=== PATIENT | female | born 1990 | race Caucasian/White ===

== ENCOUNTER → 2016-11-17 | Outpatient (CLI) | payer BC ==
[~2016-11-17] MED LIST: /LOR25TA PO; AUGM500T34 PO; DEPO150I IM; PERCOCET PO; TUMS500C PO; ZOLO50TA PO
== END ==
LOC: M WUC 11:51
PROVIDERS: ATTEND Physician Assistant
DX: Z33.1 Pregnant state, incidental (principal)

== ENCOUNTER → 2016-11-28 | Outpatient (CLI) | payer BC ==
[2016-11-28 16:36] LABS: BASO # 0.1 K/mm3 (0.0-0.2); BASO % 1.2 % (0.0-1.0); EOS # 0.3 K/mm3 (0.0-0.50); EOS % 3.2 % (0.0-3.0); LARGE UNSTAINED CELL # 0.1 K/mm3 (0.0-0.4); LYMPH # 2.5 K/mm3 (1.5-6.5); LYMPH % 25.6 % (24.0-44.0); MEAN CORPUSCULAR HEMOGLOBIN 28.9 pg (27.0-33.0); MEAN CORPUSCULAR HGB CONC 32.1 g/dl (32.0-36.5); MEAN CORPUSCULAR VOLUME 90.1 fl (80.0-96.0); MONO # 0.5 K/mm3 (0.0-0.8); MONO % 5.5 % (0.0-5.0); NEUTROPHILS # 5.9 K/mm3 (1.8-7.7); NEUTROPHILS % 63.5 % (36.0-66.0); PLATELET COUNT, AUTOMATED 379 k/mm3 (150-450); RED CELL DISTRIBUTION WIDTH 13.5 % (11.5-14.5); WHITE BLOOD COUNT 9.3 K/mm3 (4.0-10.0)
[2016-11-28 17:35] LABS: CALCIUM OXALATE CRYSTALS MODERATE
[2016-11-29 09:22] LABS: HIV SCRN NEGATIVE (NEGATIVE); HIV SCRN1 NEGATIVE (NEGATIVE)
[2016-11-29 09:29] LABS: CONTROL LINE INT CTR LINE PRESENT
[2016-11-29 10:00] LABS: HBsAg Prenatal NEGATIVE (NEGATIVE)
== END ==
LOC: M LAB 15:47
PROVIDERS: ATTEND Advanced Practice Midwife
DX: Z34.81 Encounter for supervision of other normal pregnancy, first trimester (principal); Z36 Encounter for antenatal screening of mother

== ENCOUNTER → 2016-12-06 | Outpatient (CLI) | payer BC ==
[~2016-12-06] MED LIST changes: +FLINCHW9 PO
[2016-12-06 18:44] LABS: ALBUMIN 3.9 GM/DL (3.2-5.2); ANION GAP 10 MEQ/L (8-16); BLOOD UREA NITROGEN 9 MG/DL (7-18); CALCIUM LEVEL 9.1 MG/DL (8.5-10.1); CARBON DIOXIDE LEVEL 23 MEQ/L (21-32); CHLORIDE LEVEL 106 MEQ/L (98-107); CREATININE FOR GFR 0.82 MG/DL (0.55-1.02); GLOMERULAR FILTRATION RATE > 60.0 (>60); GLUCOSE, FASTING 119 MG/DL (70-105); PHOSPHORUS LEVEL 3.3 MG/DL (2.5-4.9); POTASSIUM SERUM 4.1 MEQ/L (3.5-5.1); SODIUM LEVEL 139 MEQ/L (136-145)
== END ==
LOC: M SMT 15:18
PROVIDERS: ATTEND Advanced Practice Midwife
DX: Z34.81 Encounter for supervision of other normal pregnancy, first trimester (principal); Z36 Encounter for antenatal screening of mother

== ENCOUNTER 2016-12-11 07:02 | Observation (INO) | payer BC ==
[~2016-12-11] VITALS: Ht 160 cm; Wt 61.8 kg
[2016-12-11] VITALS (7 sets, daily range): BP systolic 102–115; BP diastolic 56–73
[~2016-12-11 07:02] MED LIST changes: -FLINCHW9 PO
[2016-12-11] MEDS: PRENATAL VITAMIN TAB PO SCH (09:00)
[2016-12-11 09:30] LABS: BASO % 0.3 % (0.0-1.0); EOS # 0.1 K/mm3 (0.0-0.50); EOS % 1.7 % (0.0-3.0); LARGE UNSTAINED CELL # 0.1 K/mm3 (0.0-0.4); LARGE UNSTAINED CELL % 1.6 % (0.0-4.0); LYMPH # 1.4 K/mm3 (1.5-6.5); LYMPH % 20.1 % (24.0-44.0); MEAN CORPUSCULAR HGB CONC 33.8 g/dl (32.0-36.5); MEAN CORPUSCULAR VOLUME 88.8 fl (80.0-96.0); MONO # 0.3 K/mm3 (0.0-0.8); MONO % 4.7 % (0.0-5.0); NEUTROPHILS % 71.6 % (36.0-66.0); PLATELET COUNT, AUTOMATED 299 k/mm3 (150-450); RED CELL DISTRIBUTION WIDTH 12.3 % (11.5-14.5)
[2016-12-11 10:17] LABS: ANION GAP 7 MEQ/L (8-16); BLOOD UREA NITROGEN 6 MG/DL (7-18); CALCIUM LEVEL 8.8 MG/DL (8.5-10.1); CARBON DIOXIDE LEVEL 27 MEQ/L (21-32); CHLORIDE LEVEL 107 MEQ/L (98-107); CREATININE FOR GFR 0.64 MG/DL (0.55-1.02); GLOMERULAR FILTRATION RATE > 60.0 (>60); GLUCOSE, FASTING 69 MG/DL (70-105); POTASSIUM SERUM 3.7 MEQ/L (3.5-5.1); SODIUM LEVEL 141 MEQ/L (136-145)
[2016-12-11] MEDS ORDERED: FLINCHW9 PO (10:32)
[2016-12-11] MEDS ORDERED: ACETAMINOPHEN TAB 650MG DOSE (2X325MG) PO PRN (10:45)
--- NOTE | 2016-12-11 13:01 | EDDOCDS ---
Nurse's Notes [facility] Name: Yuliana Garcia Age: 26 yrs Sex: Female : 1990 Arrival Date: 12/11/2016 Time: 07:02 Bed I3 / M3 Private MD: Monica Shaffer E Diagnosis: Transient cerebral ischemic attack, unspecified-possible Presentation: 12/11 07:06 Presenting complaint: Patient states: states was walking and felt dizzy had numb ml6 feeling in right side of body, state Hx of same with negative MRI. Lasted 30 mins, states 8 weeks . Adult Sepsis Screening: The patient does not have new or worsening altered mentation. Patient's respiratory rate is less than 22. Systolic blood pressure is greater than 100. Patient has a qSOFA score of 0- Negative Sepsis Screen. Suicide/Homicide risk assessment- the patient denies having any suicidal and/or homicidal ideations and does not present with any other emotional, behavioral or mental health complaints. 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 Transition of care: patient was not received from another setting of care. 07:06 Acuity: NEEMA Level 3 ml6 07:06 Method Of Arrival: Walkin/Carried/Asstd ml6 Triage Assessment: 07:09 General: Appears in no apparent distress, Behavior is appropriate for age, cooperative. ml6 Pain: Denies pain. HIV screening NA for this visit Offered previously. Neurological: Level of Consciousness is awake, alert, Oriented to person, place, Surface Room Shop Optician are equal bilaterally Moves all extremities. Full function in bilateral hand's) arm(s) leg(s) foot/feet Gait is steady, Speech is normal, Facial symmetry appears normal, Pupils are irregular. Cardiovascular: No deficits noted. Respiratory: No deficits noted. 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 Macrobid 100 mg Oral cap 1 cap every 12 hours x 7 days, pt filled on 11/30/16 but has not started - PMHx: none; - PSHx: Cholecystectomy; ; - Social history: Smoking status: Patient states was never smoker of tobacco. No barriers to communication noted, Speaks appropriately for age. - Family history: Not pertinent. - : The pt / caregiver states he / she is not on anticoagulants. Home medication list is obtained from the patient. - Exposure Risk Screening:: None identified. Screenin:48 Screening information is obtained from the patient. Fall risk: No risks identified. jjr Assistance ADL's: requires no assistance with activities of daily living. Abuse/DV Screen: The patient / caregiver reports he/she is: not in a situation that causes fear, pain or injury. Nutritional screening: No deficits noted. Advance Directives: There is no active DNR order. home support is adequate. Assessment: 07:46 General: Appears in no apparent distress, well nourished, well groomed, Behavior is jjr appropriate for age. General: Reports fatigue for 0-12 hours. Neurological: Level of Consciousness is awake, alert, Surface Room Shop Optician are equal bilaterally Moves all extremities. Speech is normal, Facial symmetry appears normal, Facial symmetry: tongue is midline, Pupils are PERRLA, Reports "tightness" to forehead. Respiratory: No deficits noted. GI: Reports "morning sickness" nausea has not vomited. Derm: No deficits noted. 07:48 : Denies cramping vaginal bleeding. jjr 08:33 General: Appears in no apparent distress, denies any numbness slurred speech since jjr arrival. 09:45 General: Appears in no apparent distress, denies numbness slurred speech, tolerating jjr food and fluids denies needs at this time. Neurological: No deficits noted. 10:33 General: Appears in no apparent distress, Behavior is appropriate for age. Pain: jjr Location: forehead. Neurological: No deficits noted. Respiratory: No deficits noted. Derm: No deficits noted. 11:24 General: Appears in no apparent distress, Behavior is appropriate for age. Pain: Denies jjr pain. Neurological: No deficits noted. Respiratory: No deficits noted. Derm: No deficits noted. 11:55 General: Appears skin warm and dry color satisfactory. alert and oriented x 3 JYOTHI JAUREGUI jmk readily with equal strength. without resp distress. reports sensation has returned to baseline.. 11:56 Cardiovascular: Capillary refill < 3 seconds Clubbing of nail beds is absent JVD is jmk absent Rhythm is sinus rhythm No ectopy. 12:56 General: Appears without symptoms. strength equal to all extremities. denies pain. sl jmk intact. admitted.. Vital Signs: 07:07 BP 140 / 71; Pulse 84; Resp 16; Temp 97.1(O); Pulse Ox 98% on R/A; Weight 62.6 kg (R); ml6 Height 5 ft. 3 in. (160.02 cm) (R); Pain 0/10; 08:44 BP 114 / 73 LA Supine (auto/reg); Pulse 66; jjr 08:44 BP 113 / 70 LA Sitting (auto/reg); Pulse 77; jjr 08:44 BP 118 / 67 LA Standing (auto/reg); Pulse 87; jjr 11:51 BP 126 / 61; Pulse 102; Resp 18; Temp 97.3(O); Pulse Ox 98% on R/A; Pain 0/10; jjr 12:56 BP 117 / 56; Pulse 85; Resp 16; Temp 99.3(TE); Pulse Ox 98% on R/A; jmk 07:07 Body Mass Index 24.45 (62.60 kg, 160.02 cm) ml6 Vitals: 07:07 Log In Time: December 11, 2016 at 07:02. 6 ED Course: 07:04 Patient visited by Russel Carter Reg. pm4 07:04 Monica Shaffer is Private Physician. pm4 07:04 Patient moved to Waiting pm4 07:07 Triage Initiated ml6 07:13 April Moss, RN is Primary Nurse. ml6 07:13 Patient moved to I3 / M3 ml6 07:20 Ayush Leonard PA-C is PHCP. ar2 07:20 Radha Son MD is Attending Physician. ar2 07:20 Patient visited by Ayush Leonard PA-C. ar2 07:49 Patient visited by April Moss RN. jjr 07:49 The patient / caregiver is instructed regarding the plan of care and ED course. jjr 08:33 Patient visited by April Moss, [place]. jjr 08:36 [place] [place] Payment Agreement was scanned into [employer] and attached to record. jp5 09:14 Parag Kilgore is Hospitalizing Provider. ar2 09:17 MED Profile Sent. jjr 09:17 CBC with Diff Sent. jjr 09:45 Patient visited by April Moss RN. jjr 10:33 Patient visited by April Moss RN. jjr 11:24 Patient visited by April Moss RN. jjr 11:53 Inserted saline lock: 20 gauge in left antecubital area. No procedures done that jjr require assistance. Point of Care Testing: Blood Glucose: 08:44 Blood Glucose: 92 mg/dL; jjr 10:32 Blood Glucose: 84 mg/dL; jjr Ranges: Order Results: Lab Order: CBC with Diff; SPEC'M 12/11/16 09:16 Test: WHITE BLOOD COUNT; Value: 7.0; Range: 4.0-10.0; Units: K/mm3; Status: F Test: RED BLOOD COUNT; Value: 4.27; Range: 4.00-5.40; Units: M/mm3; Status: F Test: HEMOGLOBIN; Value: 12.8; Range: 12.0-16.0; Units: g/dl; Status: F Test: HEMATOCRIT; Value: 37.9; Range: 36.0-47.0; Units: %; Status: F Test: MEAN CORPUSCULAR VOLUME; Value: 88.8; Range: 80.0-96.0; Units: fl; Status: F Test: MEAN CORPUSCULAR HEMOGLOBIN; Value: 30.0; Range: 27.0-33.0; Units: pg; Status: F Test: MEAN CORPUSCULAR HGB CONC; Value: 33.8; Range: 32.0-36.5; Units: g/dl; Status: F Test: RED CELL DISTRIBUTION WIDTH; Value: 12.3; Range: 11.5-14.5; Units: %; Status: F Test: PLATELET COUNT, AUTOMATED; Value: 299; Range: 150-450; Units: k/mm3; Status: F Test: NEUTROPHILS %; Value: 71.6; Range: 36.0-66.0; Abnormal: Above high normal; Units: %; Status: F Test: LYMPH %; Value: 20.1; Range: 24.0-44.0; Abnormal: Below low normal; Units: %; Status: F Test: MONO %; Value: 4.7; Range: 0.0-5.0; Units: %; Status: F Test: EOS %; Value: 1.7; Range: 0.0-3.0; Units: %; Status: F Test: BASO %; Value: 0.3; Range: 0.0-1.0; Units: %; Status: F Test: LARGE UNSTAINED CELL %; Value: 1.6; Range: 0.0-4.0; Units: %; Status: F Test: NEUTROPHILS #; Value: 5.0; Range: 1.8-7.7; Units: K/mm3; Status: F Test: LYMPH #; Value: 1.4; Range: 1.5-6.5; Abnormal: Below low normal; Units: K/mm3; Status: F Test: MONO #; Value: 0.3; Range: 0.0-0.8; Units: K/mm3; Status: F Test: EOS #; Value: 0.1; Range: 0.0-0.50; Units: K/mm3; Status: F Test: BASO #; Value: 0.0; Range: 0.0-0.2; Units: K/mm3; Status: F Test: LARGE UNSTAINED CELL #; Value: 0.1; Range: 0.0-0.4; Units: K/mm3; Status: F Lab Order: [facility] Profile; [facility]'M 12/11/16 09:16 Test: GLUCOSE, FASTING; Value: 69; Range: 70-105; Abnormal: Below low normal; Units: MG/DL; Status: F Test: BLOOD UREA NITROGEN; Value: 6; Range: 7-18; Abnormal: Below low normal; Units: MG/DL; Status: F Test: CREATININE FOR GFR; Value: 0.64; Range: 0.55-1.02; Units: MG/DL; Status: F Test: GLOMERULAR FILTRATION RATE; Value: > 60.0; Range: >60; Status: F Test: SODIUM LEVEL; Value: 141; Range: 136-145; Units: MEQ/L; Status: F Test: POTASSIUM SERUM; Value: 3.7; Range: 3.5-5.1; Units: MEQ/L; Status: F Test: CHLORIDE LEVEL; Value: 107; Range: 98-107; Units: MEQ/L; Status: F Test: CARBON DIOXIDE LEVEL; Value: 27; Range: 21-32; Units: MEQ/L; Status: F Test: ANION GAP; Value: 7; Range: 8-16; Abnormal: Below low normal; Units: MEQ/L; Status: F Test: CALCIUM LEVEL; Value: 8.8; Range: 8.5-10.1; Units: MG/DL; Status: F Test Note: ; Units are mL/min/1.73 m2 Chronic Kidney Disease Staging per NKF: Stage I & II GFR >=60 Normal to Mildly Decreased Stage III GFR 30-59 Moderately Decreased Stage IV GFR 15-29 Severely Decreased Stage V GFR <15 Very Little GFR Left ESRD GFR <15 on SKIN TOGGLER Lab Order: Fingerstick Blood Sugar; SPEC'M 12/11/16 08:43 Test: BEDSIDE GLUCOSE; Value: 92; Range: 70-105; Units: MG/DL; Status: F Lab Order: UA; SPEC'M 12/11/16 11:48 Test: APPEARANCE, URINE; Value: HAZY; Range: CLEAR; Status: F Test: COLOR, URINE; Value: YELLOW; Range: YELLOW; Status: F Test: PH,URINE; Value: 9.0; Range: 5.0-9.0; Units: UNITS; Status: F Test: SPECIFIC GRAVITY URINE AUTO; Value: 1.014; Range: 1.002-1.035; Status: F Test: PROTEIN, URINE AUTO; Value: NEGATIVE; Range: NEGATIVE; Units: mg/dL; Status: F Test: GLUCOSE, URINE (UA) AUTO; Value: NEGATIVE; Range: NEGATIVE; Units: mg/dL; Status: F Test: KETONE, URINE AUTO; Value: NEGATIVE; Range: NEGATIVE; Units: mg/dL; Status: F Test: UROBILINOGEN, URINE AUTO; Value: 0.2; Range: 0.0-2.0; Units: mg/dL; Status: F Test: BILIRUBIN, URINE AUTO; Value: NEGATIVE; Range: NEGATIVE; Status: F Test: NITRITE, URINE AUTO; Value: NEGATIVE; Range: NEGATIVE; Status: F Test: LEUKOCYTE ESTERASE, URINE AUTO; Value: 3+; Range: NEGATIVE; Abnormal: Above high normal; Status: F Test: BLOOD, URINE BLOOD; Value: NEGATIVE; Range: NEGATIVE; Status: F Test: WBC, URINE AUTO; Value: 5; Range: 0-3; Abnormal: Above high normal; Units: /HPF; Status: F Test: RBC, URINE AUTO; Value: 16; Range: 0-3; Abnormal: Above high normal; Units: /HPF; Status: F Test: BACTERIA, URINE AUTO; Value: 1+; Range: NEGATIVE; Abnormal: Above high normal; Status: F Test: SQUAMOUS EPITHELIAL CELL UR AU; Value: 11; Range: 0-6; Units: /HPF; Status: F Test: MUCUS, URINE; Value: SMALL; Range: NEGATIVE; Status: F Test: HYALINE CAST, URINE AUTO; Value: 0; Range: 0-1; Units: /LPF; Status: F Test: AMORPHOUS SEDIMENT; Value: SMALL; Range: NEGATIVE; Abnormal: Above high normal; Status: F Lab Order: Fingerstick Blood Sugar; SPEC'M 12/11/16 10:31 Test: BEDSIDE GLUCOSE; Value: 84; Range: 70-105; Units: MG/DL; Status: F Outcome: 09:15 Decision to Hospitalize by Provider. ar2 12:56 Discharge Assessment: Patient awake, alert and oriented x 3. No cognitive and/or k functional deficits noted. Patient verbalized understanding of disposition instructions. patient administered narcotics - no. The following High Risk Discharge criteria are identified: None. Condition: good. No special radiology studies were completed. Admission hand-off: Report Faxed Fax receipt verified by bert pemberton. Property :Personal belongings accompany Pt. 13:00 Patient left the ED. [facility] Signatures: Param RutledgeRN RN April Hernandez RN RN Ayush Escobar, PA-C PA-C ar2 Sean Jay, RN RN ml6 Samuel Galvan jp5 Russel Carter, Reg Reg pm4 Corrections: (The following items were deleted from the chart) 07:09 07:06 Presenting complaint: Patient states: states was walking and felt dizzy had numb ml6 feeling in right side of body, state Hx of same with negative MRI ml6 11:53 07:09 Home Meds: none; ml6 jjr MTDD
--- NOTE | 2016-12-11 13:01 | EDDOCDS ---
Physician Documentation [facility] Name: Yuliana Garcia Age: 26 yrs Sex: Female : 1990 Arrival Date: 12/11/2016 Time: 07:02 Bed I3 / M3 Private MD: Monica Shaffer E Disposition: 12/11/16 09:15 Hospitalization ordered by Parag Kilgore for Inpatient Admission. Preliminary diagnosis is Transient cerebral ischemic attack, unspecified - possible. - Bed requested for PCU. - Status is Inpatient Admission. rushk - Condition is Stable. - Problem is new. - Symptoms have improved. Historical: - Allergies: no known allergies; - Home Meds: 1. Macrobid 100 mg Oral cap 1 cap every 12 hours x 7 days, pt filled on 11/30/16 but has not started - PMHx: none; - PSHx: Cholecystectomy; ; - Social history: Smoking status: Patient states was never smoker of tobacco. No barriers to communication noted, Speaks appropriately for age. - Family history: Not pertinent. - : The pt / caregiver states he / she is not on anticoagulants. Home medication list is obtained from the patient. - Exposure Risk Screening:: None identified. 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 3 in. (160.02 cm) (R); Pain 0/10; 08:44 BP 114 / 73 LA Supine (auto/reg); Pulse 66; jjr 08:44 BP 113 / 70 LA Sitting (auto/reg); Pulse 77; jjr 08:44 BP 118 / 67 LA Standing (auto/reg); Pulse 87; jjr 11:51 BP 126 / 61; Pulse 102; Resp 18; Temp 97.3(O); Pulse Ox 98% on R/A; Pain 0/10; jjr 12:56 BP 117 / 56; Pulse 85; Resp 16; Temp 99.3(TE); Pulse Ox 98% on R/A; jmk 07:07 Body Mass Index 24.45 (62.60 kg, 160.02 cm) ml6 MDM: 08:34 IV Saline Lock ordered. ar2 08:34 Accucheck ordered. ar2 08:34 Orthostatic VS ordered. ar2 08:35 CBC with Diff Ordered. EDMS 08:35 MED Profile Ordered. EDMS 08:36 [facility] [place] Payment Agreement was scanned into MED[employer] and attached to record. jp5 08:36 Financial registration complete. jp5 08:51 Fingerstick Blood Sugar Ordered. EDMS 09:13 BED REQUEST+ADM ordered. EDMS 10:21 CBC with Diff Reviewed. ar2 10:21 MED Profile Reviewed. ar2 10:21 Fingerstick Blood Sugar Reviewed. ar2 10:23 UA Ordered. EDMS 10:50 Admission / Observation Status ordered. EDMS 10:50 REGULAR DIET ordered. EDMS Point of Care Testing: Blood Glucose: 08:44 Blood Glucose: 92 mg/dL; jjr 10:32 Blood Glucose: 84 mg/dL; jjr Ranges: Signatures: Dispatcher [employer] EDCA Param Rutledge,RN RN April Hernandez, RN RN jjr Ayush Leonard, PA-Flores PADavid ar2 Sean Jay, RN RN ml6 Samuel Galvan jp5 Yolis Fragoso, RN RN melida The chart was reviewed and I authenticate all verbal orders and agree with the evaluation and treatment provided.Corrections: (The following items were deleted from the chart) 11:53 07:09 Home Meds: none; ml6 jjr Attachments: 08:36 [facility] Payment Agreement jp5 MTDD
[2016-12-11] MEDS ORDERED: SLF 3 ML SYR IV PRN (13:30)
--- NOTE | 2016-12-11 15:29 | HPEPDOC ---
Medical History and Physical Date of Admission Dec 11, 2016 at 10:40 History and Physical HISTORY AND PHYSICAL Date of admission: 12/11/2016 PCP: Dr. Shaffer Chief complaint: Dizziness and right-sided numbness HPI: 26-year-old female at approximately 8 weeks who presented with sudden onset of dizziness and right-sided paresthesias. 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 She states that her tongue felt swollen, and she noticed that her right hand could not weigher bulker. She states that this self resolved after approximately 30 minutes. Upon further questioning , she does endorse a bilateral frontal headache that coincided with the symptoms but also resolved with them. She states that she does not have a history of migraines or frequent headaches. She does report one prior episode that was similar to this approximately 5 years ago. She reports that time, she did get an MRI, which saw "spots on her brain." She states that she was supposed to receive follow-up for this, but as she never had any further issue with that, she never had any repeat imaging or pursued further follow-up. Past medical history: Gallstone pancreatitis, cholecystitis Past surgical history: Cholecystitis, Family history: Diabetes mellitus, hypertension, CVA in her grandfather who was approximately 70 years old at the time, no familial history of strokes in the young or blood clots Social history: Patient has never smoked, and does not drink alcohol or use drugs Allergies: No known drug allergies Review of systems: General: Negative for fever and chills Eyes:. Negative for vision changes and ocular discharge ENT: Negative for sore throat and nose bleed Cardiovascular: Negative for chest pain and palpitations Respiratory: Negative for cough and shortness of breath GI: Positive for nausea. Negative for vomiting, diarrhea, constipation Musculoskeletal: Positive for chronic back pain Skin: Negative for rash Neuro: Positive for headache, dizziness, numbness, tingling Psych: Negative for depression and suicidal ideation Endocrine: Negative for polyuria : Negative for dysuria Heme: Negative for Bruising and bleeding Home meds: See below Physical exam: Vital signs: Blood pressure 102/56, HR 78, temperature 97.6, O2 sat 97% on room air, RR 18 Gen.: awake, alert, no acute distress Eyes: Extraocular movements intact, normal sclera ENT: Moist mucous membranes Cardiovascular: RRR, no murmurs rubs or gallops Lungs: clear to auscultation bilaterally, no rales, rhonchi, or wheeze Abdomen: Soft, NT/ND, normal BS Musculoskeletal: normal range of motion Extremities: No peripheral edema Neuro: alert and oriented 3, normal speech, no focal deficits, no arm drift or facial droop, intact finger to nose Psych: Normal mood with congruent affect Labs and radiology: See below CBC and BMP are unremarkable Assessment and plan: 26-year-old female at approximately 8 weeks who presented with sudden onset of dizziness and right-sided paresthesias. She has been admitted for further observation. 1. Sudden onset, self resolving vertigo and right-sided paresthesias: Given the patient's current , she is certainly at risk for hypercoagulability and a stroke. Ideally, we would assess with an MRI and MRV, however, after discussion with Dr. Perdue of radiology, we will hold off at this time, as he states that MRIs are not routinely recommended in the first trimester. Additionally, this could represent a complicated migraine, as the patient does report associated headache. Dr. Edwards will be seeing the patient in consultation, and we appreciate his input and guidance on this case. We will observe the patient on telemetry and follow every 4 hours neuro checks. We also will check orthostatics. 2. Current : The patient is approximately 8 weeks . She has already established care at [facility], and reportedly has had an ultrasound which showed a single IUP. I have spoken to Simran Lopez, the millinery designer who is on-call for [facility], to alert her to the patient's admission. At this time, I do not believe a consultation is necessary, as the has not currently reached viability, and as Mrs. Lopez thinks that it is unlikely these symptoms are related to the . Continue daily vitamin. DVT prophylaxis: SCDs Dispo: in place in observation status CODE STATUS: Full code Vital Signs see above Laboratory Data Labs 24H Laboratory Tests 2 12/11/16 08:43: Bedside Glucose (Misc Panel) 92 12/11/16 09:16: Anion Gap 7L, White Blood Count 7.0, Red Blood Count 4.27, Hemoglobin 12.8, Hematocrit 37.9, Mean Corpuscular Volume 88.8, Mean Corpuscular Hemoglobin 30.0 , Mean Corpuscular Hemoglobin Concent 33.8, Red Cell Distribution Width 12.3, Platelet Count 299, Neutrophils (%) (Auto) 71.6H, Lymphocytes (%) (Auto) 20.1L, Monocytes (%) (Auto) 4.7, Eosinophils (%) (Auto) 1.7, Basophils (%) (Auto) 0.3, Neutrophils # (Auto) 5.0, Lymphocytes # (Auto) 1.4L, Monocytes # (Auto) 0.3, Eosinophils # (Auto) 0.1, Basophils # (Auto) 0.0, Blood Urea Nitrogen 6L, Creatinine 0.64, Sodium Level 141, Potassium Level 3.7, Chloride Level 107, Carbon Dioxide Level 27, Calcium Level 8.8, Glomerular Filtration Rate > 60.0, Large Unclassified Cells # 0.1, Large Unclassified Cells % 1.6 12/11/16 10:31: Bedside Glucose (Misc Panel) 84 12/11/16 11:48: Urine Amorphous Sediment SMALLH, Urine Appearance HAZY, Urine Color YELLOW, Urine pH 9.0, Urine Specific [place] 1.014, Urine Protein NEGATIVE, Urine Glucose (UA) NEGATIVE, Urine Ketones NEGATIVE, Urine Urobilinogen 0.2, Urine Bilirubin NEGATIVE, Urine Leukocyte Esterase 3+H, Urine Bacteria (Auto) 1+H, Urine Blood NEGATIVE, Urine Calcium Carbonate Cryst(Auto) , Urine Calcium Oxalate Cryst (Auto) , Urine Calcium Phosphate [place] (Auto) , Urine Cellular Casts , Urine Cystine Crystals , Urine Granular Casts (Auto) , Urine Hyaline Casts (Auto) 0, Urine Leucine Crystals , Urine Mucus (Auto) SMALL, Urine Nitrite NEGATIVE, Urine Oval Fat Bodies (Auto) , Urine RBC (Auto) 16H, Urine Renal Epithelial Cells , Urine Sperm (Auto) , Urine Squamous Epithelial Cells 11 , Urine Transitional Epithelial Cells , Urine Trichomonas (Auto) , Urine Triple Phosphate Cryst (Auto) , Urine Tyrosine Crystals , Urine Uric Acid Crystals ( Auto) , Urine WBC (Auto) 5H, Urine Waxy Casts (Auto) , Urine Yeast-Like Cells ( Auto) CBC/BMP Laboratory Tests 12/11/16 09:16 Calcium Level 8.8, Red Blood Count 4.27, Mean Corpuscular Volume 88.8, Mean Corpuscular Hemoglobin 30.0, Mean Corpuscular Hemoglobin Concent 33.8, Red Cell Distribution Width 12.3, Neutrophils (%) (Auto) 71.6 H, Lymphocytes (%) (Auto) 20.1 L, Monocytes (%) (Auto) 4.7, Eosinophils (%) (Auto) 1.7, Basophils (%) ( Auto) 0.3, Neutrophils # (Auto) 5.0, Lymphocytes # (Auto) 1.4 L, Monocytes # ( Auto) 0.3, Eosinophils # (Auto) 0.1, Basophils # (Auto) 0.0 FSBS Laboratory Tests Test 12/11/16 08:43 12/11/16 10:31 Range/Units Bedside Glucose (Misc Panel) 92 84 70-105 MG/DL Home Medications Scheduled (Timoteo Sharma) 1 Chw Chw 2 CHW PO DAILY Allergies Coded Allergies: No Known Drug Allergy (Unverified Allergy, Unknown, 02/10/13) ИРИНА ALVES Dec 11, 2016 15:28
[2016-12-11] MEDS: SLF 3 ML SYR IV SCH ×2 (18:16→21:36)
[2016-12-12] MEDS: SLF 3 ML SYR IV SCH (03:28)
[2016-12-12 04:00] VITALS: BP 96/59
[2016-12-12 05:59] LABS: BASO % 0.3 % (0.0-1.0); EOS # 0.2 K/mm3 (0.0-0.50); EOS % 2.4 % (0.0-3.0); LARGE UNSTAINED CELL # 0.2 K/mm3 (0.0-0.4); LYMPH # 1.8 K/mm3 (1.5-6.5); MEAN CORPUSCULAR HEMOGLOBIN 30.1 pg (27.0-33.0); MEAN CORPUSCULAR HGB CONC 33.6 g/dl (32.0-36.5); MEAN CORPUSCULAR VOLUME 89.6 fl (80.0-96.0); MONO # 0.5 K/mm3 (0.0-0.8); NEUTROPHILS # 5.5 K/mm3 (1.8-7.7); NEUTROPHILS % 67.3 % (36.0-66.0); PLATELET COUNT, AUTOMATED 288 k/mm3 (150-450); RED CELL DISTRIBUTION WIDTH 12.3 % (11.5-14.5); WHITE BLOOD COUNT 8.2 K/mm3 (4.0-10.0)
[2016-12-12 06:05] LABS: ANION GAP 9 MEQ/L (8-16); BLOOD UREA NITROGEN 5 MG/DL (7-18); CALCIUM LEVEL 8.6 MG/DL (8.5-10.1); CARBON DIOXIDE LEVEL 24 MEQ/L (21-32); CHLORIDE LEVEL 107 MEQ/L (98-107); CREATININE FOR GFR 0.67 MG/DL (0.55-1.02); GLOMERULAR FILTRATION RATE > 60.0 (>60); GLUCOSE, FASTING 84 MG/DL (70-105); MAGNESIUM LEVEL 1.9 MG/DL (1.8-2.4); SODIUM LEVEL 140 MEQ/L (136-145)
[2016-12-12 08:00] VITALS: BP 99/57
[2016-12-12 08:05] VITALS: BP 104/66
[2016-12-12 08:10] VITALS: BP 99/65
[2016-12-12] MEDS: PRENATAL VITAMIN TAB PO SCH (09:00)
--- NOTE | 2016-12-12 13:46 | DSES ---
DATE OF ADMISSION: 12/11/2016 DATE OF DISCHARGE: 12/12/2016 DISCHARGE DIAGNOSIS: 1. Vertigo. 2. Paresthesias. SECONDARY DIAGNOSES: 1. Possible complex migraine. 2. Eight week gestational . HOSPITAL COURSE: The patient is a 26-year-old female who reported 30 minutes of right-sided paresthesias, weakness associated with vertigo of sudden onset, self-limited and spontaneously resolved prior to her arrival to the emergency room. She was seen in consultation by Dr. Edwards of neurology. It was recommended the patient should have an magnetic resonance imaging/magnetic resonance venography (MRI/MRV) if there was concern for a potential cerebrovascular accident (CVA), given her hypercoagulable state of ; however, after discussions with the neuroradiologist and the risk of radiation exposure during her first trimester, and the fact that the patient's symptoms subsided spontaneously, the patient decided that she would forgo an MRI at this time and consider having it done in the outpatient setting and follow up with neurology. We had a lengthy conversation with the patient, Dr. Coulter, Dr. Edwards, as well as myself, and the patient has elected for this course of action. She has been advised that should she have any recurrence of her symptoms, she should return to the emergency room to reconsider getting the MRI/MRV more urgently. SUBJECTIVE: Today, the patient reports feels completely better. She has no complaints whatsoever. OBJECTIVE: VITAL SIGNS: Temperature 97.2, pulse 70, respiratory rate 18, blood pressure 99/57, oxygen saturation 97% on room air. GENERAL: She is a pleasant, young female laying flat in bed in no distress. HEENT: Cranial nerves II-XII grossly intact. She has moist mucous membranes. No elevation of central venous pressure (CVP). CARDIOVASCULAR EXAMINATION: S1, S2. Regular. RESPIRATORY EXAMINATION: Clear. ABDOMINAL EXAMINATION: Abdomen was benign. EXTREMITIES: No clubbing, cyanosis or edema. LABORATORY STUDIES: WBC 8.2, hemoglobin 12.4, platelet count 288. Chemistry panel: Sodium 140, potassium 4.0, chloride 107, bicarbonate 24, BUN 5, creatinine 0.6. No new imaging. ASSESSMENT AND PLAN: This is a 26-year-old female with paresthesias and vertigo. PROBLEMS: 1. Paresthesias and vertigo. Self-limited and resolved. Possibly related to complex migraine; however, there is also the underlying possibility that the patient may have severe, significant findings on an MRI/MRV. At this time, the patient has elected to forgo further imaging testing and will reconsider after her first trimester is over. She did discuss this plan with Dr. Edwards. She will follow up with him within two weeks. Symptoms have completely resolved at this time. 2. Eight-week gestation . The patient follows at [facility]. They were notified of her arrival. Did not feel that this was related to her and the case was discussed with her on-call. She is continuing her daily vitamins. 3. Deep venous thrombosis (DVT) prophylaxis. Sequentials and thromboembolitic deterrents (TEDs). DISPOSITION: The patient is being discharged home to the care of her family. She is to follow up with her brush head maker (OB) within seven days and then neurology as soon as possible. Her activity and diet are as prior to admission. She is to return to the emergency room (ER) if her symptoms worsen. MEDICATIONS AT THE TIME OF DISCHARGE: - [employer]'s gummies two chewable daily. Greater than 30 minutes spent organizing disposition.
--- NOTE | 2016-12-12 15:22 | CR ---
DATE OF NEUROLOGY CONSULTATION: 12/11/2016 REASON FOR CONSULTATION: Dizziness with hemisensory disturbance. The patient is a 26-year-old, 8-week female presenting with a chief complaint of experiencing sudden onset of dizziness. The patient states that soon after the dizziness she started to notice a headache. During the headache the patient started to notice tingling and paresthesias involving her right hand , which over several minutes traveled up her right arm involving her face, then trunk then leg. The symptoms of dizziness lasted about 10 minutes and the remaining 20 minutes involved the paresthesias which soon resolved. During this time she described the headache, which was mild in intensity and resolved after the symptoms had resolved themselves. The patient states that a similar episode occurred approximately a year ago. Due to the patient being in her first trimester it was recommended to avoid MRI of the brain and MR venogram although would be ideal. The patient likely clinically has complex migraine due to the cortical depression symptoms of right hemisensory changes which were transient. The patient is currently at her baseline state and has been admitted to [facility] for observation. The patient will likely have an MRI of the brain and MR venogram without contrast if her symptoms return in the second or third trimester. PAST MEDICAL HISTORY: Gallstone pancreatitis, cholecystitis. PAST SURGICAL HISTORY: Cholecystitis, . FAMILY HISTORY: Noncontributory. SOCIAL HISTORY: The patient denies use of any alcohol, illicit drugs or tobacco. ALLERGIES: None. CURRENT MEDICATIONS: vitamins REVIEW OF SYSTEMS: 14-point review of systems was obtained and is negative except as per HPI. PHYSICAL EXAMINATION: Current height 5 feet 3 inches, current weight 62.7 kg, temperature 97.6 degrees Fahrenheit, pulse rate 78, respiratory rate is 18, blood pressure was 102/56, oxygenation 97% room air. The patient is alert, or to person, place and time. Speech, language comprehension, repetition are intact. Pupils are 3 mm round, reactive to light. Extraocular movements are intact in all directions without nystagmus. Sensation V1, V2, V3 is intact to light touch in all four extremities. Romberg testing is negative. The patient has normal reflexes, 2s in upper and lower extremities. Babinski signs are absent. Coordination: Normal [id number], [id number] without any signs of ataxia, dysmetria. Romberg testing is negative. ASSESSMENT: Complex migraine with cortical depression and hemisensory disturbance with dizziness, resolved. PLAN: Continue observation for 24 hours. The patient to followup in the [facility] Neurology office as an outpatient. Can consider MRI and MR venogram in the second or third trimester. DARCYD
--- NOTE | 2016-12-13 14:01 | EDDOCDS ---
Physician Documentation [facility] Name: Yuliana Garcia Age: 26 yrs Sex: Female : 1990 Arrival Date: 12/11/2016 Time: 07:02 Bed I3 / M3 Private MD: Monica Shaffer E Disposition: 12/11/16 09:15 Hospitalization ordered by Parag Kilgore for Inpatient Admission. Preliminary diagnosis is Transient cerebral ischemic attack, unspecified - possible. - Bed requested for PCU. - Status is Inpatient Admission. rushk - Condition is Stable. - Problem is new. - Symptoms have improved. Historical: - Allergies: no known allergies; - Home Meds: 1. Macrobid 100 mg Oral cap 1 cap every 12 hours x 7 days, pt filled on 11/30/16 but has not started - PMHx: none; - PSHx: Cholecystectomy; ; - Social history: Smoking status: Patient states was never smoker of tobacco. No barriers to communication noted, Speaks appropriately for age. - Family history: Not pertinent. - : The pt / caregiver states he / she is not on anticoagulants. Home medication list is obtained from the patient. - Exposure Risk Screening:: None identified. 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 3 in. (160.02 cm) (R); Pain 0/10; 08:44 BP 114 / 73 LA Supine (auto/reg); Pulse 66; jjr 08:44 BP 113 / 70 LA Sitting (auto/reg); Pulse 77; jjr 08:44 BP 118 / 67 LA Standing (auto/reg); Pulse 87; jjr 11:51 BP 126 / 61; Pulse 102; Resp 18; Temp 97.3(O); Pulse Ox 98% on R/A; Pain 0/10; jjr 12:56 BP 117 / 56; Pulse 85; Resp 16; Temp 99.3(TE); Pulse Ox 98% on R/A; jmk 07:07 Body Mass Index 24.45 (62.60 kg, 160.02 cm) ml6 MDM: 08:34 IV Saline Lock ordered. ar2 08:34 Accucheck ordered. ar2 08:34 Orthostatic VS ordered. ar2 08:35 CBC with Diff Ordered. EDMS 08:35 MED Profile Ordered. EDMS 08:36 [facility] Payment Agreement was scanned into [employer] and attached to record. jp5 08:36 Financial registration complete. jp5 08:51 Fingerstick Blood Sugar Ordered. EDMS 09:13 BED REQUEST+ADM ordered. EDMS 10:21 CBC with Diff Reviewed. ar2 10:21 MED Profile Reviewed. ar2 10:21 Fingerstick Blood Sugar Reviewed. ar2 10:23 UA Ordered. EDMS 10:50 Admission / Observation Status ordered. EDMS 10:50 REGULAR DIET ordered. EDMS 14:05 T-Sheet-- Draft Copy was scanned into [employer] and attached to record. klr Point of Care Testing: Blood Glucose: 08:44 Blood Glucose: 92 mg/dL; jjr 10:32 Blood Glucose: 84 mg/dL; jjr Ranges: Signatures: Dispatcher [employer] EDMS Param Rutledge,STANFORD RN April Hernandez RN RN jancar Ayush Leonard PA-C PA-C arSean Adams, RN RN mlSamuel Yun jp5 Hafsa Barton Lisa, RN STANFORD montez The chart was reviewed and I authenticate all verbal orders and agree with the evaluation and treatment provided.Corrections: (The following items were deleted from the chart) 11:53 07:09 Home Meds: none; ml6 jjr Attachments: 08:36 [facility] Payment Agreement [facility] 14:05 T-Sheet-- Draft Copy klr Chart Complete MTDD
--- NOTE | 2016-12-13 14:01 | EDDOCDS ---
Physician Documentation [facility] Name: Yuliana Garcia Age: 26 yrs Sex: Female : 1990 Arrival Date: 12/11/2016 Time: 07:02 Bed I3 / M3 Private MD: Monica Shaffer E Disposition: 12/11/16 09:15 Hospitalization ordered by Parag Kilgore for Inpatient Admission. Preliminary diagnosis is Transient cerebral ischemic attack, unspecified - possible. - Bed requested for PCU. - Status is Inpatient Admission. rushk - Condition is Stable. - Problem is new. - Symptoms have improved. Historical: - Allergies: no known allergies; - Home Meds: 1. Macrobid 100 mg Oral cap 1 cap every 12 hours x 7 days, pt filled on 11/30/16 but has not started - PMHx: none; - PSHx: Cholecystectomy; ; - Social history: Smoking status: Patient states was never smoker of tobacco. No barriers to communication noted, Speaks appropriately for age. - Family history: Not pertinent. - : The pt / caregiver states he / she is not on anticoagulants. Home medication list is obtained from the patient. - Exposure Risk Screening:: None identified. 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 3 in. (160.02 cm) (R); Pain 0/10; 08:44 BP 114 / 73 LA Supine (auto/reg); Pulse 66; jjr 08:44 BP 113 / 70 LA Sitting (auto/reg); Pulse 77; jjr 08:44 BP 118 / 67 LA Standing (auto/reg); Pulse 87; jjr 11:51 BP 126 / 61; Pulse 102; Resp 18; Temp 97.3(O); Pulse Ox 98% on R/A; Pain 0/10; jjr 12:56 BP 117 / 56; Pulse 85; Resp 16; Temp 99.3(TE); Pulse Ox 98% on R/A; jmk 07:07 Body Mass Index 24.45 (62.60 kg, 160.02 cm) ml6 MDM: 08:34 IV Saline Lock ordered. ar2 08:34 Accucheck ordered. ar2 08:34 Orthostatic VS ordered. ar2 08:35 CBC with Diff Ordered. EDMS 08:35 MED Profile Ordered. EDMS 08:36 [facility] Payment Agreement was scanned into [employer] and attached to record. jp5 08:36 Financial registration complete. jp5 08:51 Fingerstick Blood Sugar Ordered. EDMS 09:13 BED REQUEST+ADM ordered. EDMS 10:21 CBC with Diff Reviewed. ar2 10:21 MED Profile Reviewed. ar2 10:21 Fingerstick Blood Sugar Reviewed. ar2 10:23 UA Ordered. EDMS 10:50 Admission / Observation Status ordered. EDMS 10:50 REGULAR DIET ordered. EDMS 14:05 T-Sheet-- Draft Copy was scanned into [employer] and attached to record. klr Point of Care Testing: Blood Glucose: 08:44 Blood Glucose: 92 mg/dL; jjr 10:32 Blood Glucose: 84 mg/dL; jjr Ranges: Signatures: Dispatcher [employer] EDMS Param Rutledge,STANFORD RN April Hernandez RN RN jancar Ayush Leonard PA-C PA-C arSean Adams, RN RN mlSamuel Yun jp5 Hafsa Barton Lisa, RN STANFORD montez The chart was reviewed and I authenticate all verbal orders and agree with the evaluation and treatment provided.Corrections: (The following items were deleted from the chart) 11:53 07:09 Home Meds: none; ml6 jjr Attachments: 08:36 [facility] Payment Agreement [facility] 14:05 T-Sheet-- Draft Copy klr Chart Complete MTDD
--- NOTE | 2016-12-13 14:01 | EDDOCDS ---
Nurse's Notes [facility] Name: Yuliana Garcia Age: 26 yrs Sex: Female : 1990 Arrival Date: 12/11/2016 Time: 07:02 Bed I3 / M3 Private MD: Monica Shaffer E Diagnosis: Transient cerebral ischemic attack, unspecified-possible Presentation: 12/11 07:06 Presenting complaint: Patient states: states was walking and felt dizzy had numb ml6 feeling in right side of body, state Hx of same with negative MRI. Lasted 30 mins, states 8 weeks . Adult Sepsis Screening: The patient does not have new or worsening altered mentation. Patient's respiratory rate is less than 22. Systolic blood pressure is greater than 100. Patient has a qSOFA score of 0- Negative Sepsis Screen. Suicide/Homicide risk assessment- the patient denies having any suicidal and/or homicidal ideations and does not present with any other emotional, behavioral or mental health complaints. Status: Patient is not a application services manager or dependent. Transition of care: patient was not received from another setting of care. 07:06 Acuity: NEEMA Level 3 ml6 07:06 Method Of Arrival: Walkin/Carried/Asstd ml6 Triage Assessment: 07:09 General: Appears in no apparent distress, Behavior is appropriate for age, cooperative. ml6 Pain: Denies pain. HIV screening NA for this visit Offered previously. Neurological: Level of Consciousness is awake, alert, Oriented to person, place, Muck Hauler are equal bilaterally Moves all extremities. Full function in bilateral hand's) arm(s) leg(s) foot/feet Gait is steady, Speech is normal, Facial symmetry appears normal, Pupils are irregular. Cardiovascular: No deficits noted. Respiratory: No deficits noted. 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 Macrobid 100 mg Oral cap 1 cap every 12 hours x 7 days, pt filled on 11/30/16 but has not started - PMHx: none; - PSHx: Cholecystectomy; ; - Social history: Smoking status: Patient states was never smoker of tobacco. No barriers to communication noted, Speaks appropriately for age. - Family history: Not pertinent. - : The pt / caregiver states he / she is not on anticoagulants. Home medication list is obtained from the patient. - Exposure Risk Screening:: None identified. Screenin:48 Screening information is obtained from the patient. Fall risk: No risks identified. jjr Assistance ADL's: requires no assistance with activities of daily living. Abuse/DV Screen: The patient / caregiver reports he/she is: not in a situation that causes fear, pain or injury. Nutritional screening: No deficits noted. Advance Directives: There is no active DNR order. home support is adequate. Assessment: 07:46 General: Appears in no apparent distress, well nourished, well groomed, Behavior is jjr appropriate for age. General: Reports fatigue for 0-12 hours. Neurological: Level of Consciousness is awake, alert, Muck Hauler are equal bilaterally Moves all extremities. Speech is normal, Facial symmetry appears normal, Facial symmetry: tongue is midline, Pupils are PERRLA, Reports "tightness" to forehead. Respiratory: No deficits noted. GI: Reports "morning sickness" nausea has not vomited. Derm: No deficits noted. 07:48 : Denies cramping vaginal bleeding. jjr 08:33 General: Appears in no apparent distress, denies any numbness slurred speech since jjr arrival. 09:45 General: Appears in no apparent distress, denies numbness slurred speech, tolerating jjr food and fluids denies needs at this time. Neurological: No deficits noted. 10:33 General: Appears in no apparent distress, Behavior is appropriate for age. Pain: jjr Location: forehead. Neurological: No deficits noted. Respiratory: No deficits noted. Derm: No deficits noted. 11:24 General: Appears in no apparent distress, Behavior is appropriate for age. Pain: Denies jjr pain. Neurological: No deficits noted. Respiratory: No deficits noted. Derm: No deficits noted. 11:55 General: Appears skin warm and dry color satisfactory. alert and oriented x 3 JYOTHI JAUREGUI jmk readily with equal strength. without resp distress. reports sensation has returned to baseline.. 11:56 Cardiovascular: Capillary refill < 3 seconds Clubbing of nail beds is absent JVD is jmk absent Rhythm is sinus rhythm No ectopy. 12:56 General: Appears without symptoms. strength equal to all extremities. denies pain. sl jmk intact. admitted.. Vital Signs: 07:07 BP 140 / 71; Pulse 84; Resp 16; Temp 97.1(O); Pulse Ox 98% on R/A; Weight 62.6 kg (R); ml6 Height 5 ft. 3 in. (160.02 cm) (R); Pain 0/10; 08:44 BP 114 / 73 LA Supine (auto/reg); Pulse 66; jjr 08:44 BP 113 / 70 LA Sitting (auto/reg); Pulse 77; jjr 08:44 BP 118 / 67 LA Standing (auto/reg); Pulse 87; jjr 11:51 BP 126 / 61; Pulse 102; Resp 18; Temp 97.3(O); Pulse Ox 98% on R/A; Pain 0/10; jjr 12:56 BP 117 / 56; Pulse 85; Resp 16; Temp 99.3(TE); Pulse Ox 98% on R/A; jmk 07:07 Body Mass Index 24.45 (62.60 kg, 160.02 cm) ml6 Vitals: 07:07 Log In Time: December 11, 2016 at 07:02. 6 ED Course: 07:04 Patient visited by Russel Carter Reg. pm4 07:04 Monica Shaffer is Private Physician. pm4 07:04 Patient moved to Waiting pm4 07:07 Triage Initiated ml6 07:13 April Moss, RN is Primary Nurse. ml6 07:13 Patient moved to I3 / M3 ml6 07:20 Ayush Leonard PA-C is PHCP. ar2 07:20 Radha Son MD is Attending Physician. ar2 07:20 Patient visited by Ayush Leonard PA-C. ar2 07:49 Patient visited by April Moss RN. jjr 07:49 The patient / caregiver is instructed regarding the plan of care and ED course. jjr 08:33 Patient visited by April Moss, [place]. jjr 08:36 [facility] Payment Agreement was scanned into [employer] and attached to record. jp5 09:14 Parag Kilgore is Hospitalizing Provider. ar2 09:17 MED Profile Sent. jjr 09:17 CBC with Diff Sent. jjr 09:45 Patient visited by April Moss RN. jjr 10:33 Patient visited by April Moss RN. jjr 11:24 Patient visited by April Moss RN. jjr 11:53 Inserted saline lock: 20 gauge in left antecubital area. No procedures done that jjr require assistance. 14:05 T-Sheet-- Draft Copy was scanned into [email or web address] and attached to record. [facility] Point of Care Testing: Blood Glucose: 08:44 Blood Glucose: 92 mg/dL; jjr 10:32 Blood Glucose: 84 mg/dL; jjr Ranges: Order Results: Lab Order: CBC with Diff; SPEC'M 12/11/16 09:16 Test: WHITE BLOOD COUNT; Value: 7.0; Range: 4.0-10.0; Units: K/mm3; Status: F Test: RED BLOOD COUNT; Value: 4.27; Range: 4.00-5.40; Units: M/mm3; Status: F Test: HEMOGLOBIN; Value: 12.8; Range: 12.0-16.0; Units: g/dl; Status: F Test: HEMATOCRIT; Value: 37.9; Range: 36.0-47.0; Units: %; Status: F Test: MEAN CORPUSCULAR VOLUME; Value: 88.8; Range: 80.0-96.0; Units: fl; Status: F Test: MEAN CORPUSCULAR HEMOGLOBIN; Value: 30.0; Range: 27.0-33.0; Units: pg; Status: F Test: MEAN CORPUSCULAR HGB CONC; Value: 33.8; Range: 32.0-36.5; Units: g/dl; Status: F Test: RED CELL DISTRIBUTION WIDTH; Value: 12.3; Range: 11.5-14.5; Units: %; Status: F Test: PLATELET COUNT, AUTOMATED; Value: 299; Range: 150-450; Units: k/mm3; Status: F Test: NEUTROPHILS %; Value: 71.6; Range: 36.0-66.0; Abnormal: Above high normal; Units: %; Status: F Test: LYMPH %; Value: 20.1; Range: 24.0-44.0; Abnormal: Below low normal; Units: %; Status: F Test: MONO %; Value: 4.7; Range: 0.0-5.0; Units: %; Status: F Test: EOS %; Value: 1.7; Range: 0.0-3.0; Units: %; Status: F Test: BASO %; Value: 0.3; Range: 0.0-1.0; Units: %; Status: F Test: LARGE UNSTAINED CELL %; Value: 1.6; Range: 0.0-4.0; Units: %; Status: F Test: NEUTROPHILS #; Value: 5.0; Range: 1.8-7.7; Units: K/mm3; Status: F Test: LYMPH #; Value: 1.4; Range: 1.5-6.5; Abnormal: Below low normal; Units: K/mm3; Status: F Test: MONO #; Value: 0.3; Range: 0.0-0.8; Units: K/mm3; Status: F Test: EOS #; Value: 0.1; Range: 0.0-0.50; Units: K/mm3; Status: F Test: BASO #; Value: 0.0; Range: 0.0-0.2; Units: K/mm3; Status: F Test: LARGE UNSTAINED CELL #; Value: 0.1; Range: 0.0-0.4; Units: K/mm3; Status: F Lab Order: [facility]; [facility]' 12/11/16 09:16 Test: GLUCOSE, FASTING; Value: 69; Range: 70-105; Abnormal: Below low normal; Units: MG/DL; Status: F Test: BLOOD UREA NITROGEN; Value: 6; Range: 7-18; Abnormal: Below low normal; Units: MG/DL; Status: F Test: CREATININE FOR GFR; Value: 0.64; Range: 0.55-1.02; Units: MG/DL; Status: F Test: GLOMERULAR FILTRATION RATE; Value: > 60.0; Range: >60; Status: F Test: SODIUM LEVEL; Value: 141; Range: 136-145; Units: MEQ/L; Status: F Test: POTASSIUM SERUM; Value: 3.7; Range: 3.5-5.1; Units: MEQ/L; Status: F Test: CHLORIDE LEVEL; Value: 107; Range: 98-107; Units: MEQ/L; Status: F Test: CARBON DIOXIDE LEVEL; Value: 27; Range: 21-32; Units: MEQ/L; Status: F Test: ANION GAP; Value: 7; Range: 8-16; Abnormal: Below low normal; Units: MEQ/L; Status: F Test: CALCIUM LEVEL; Value: 8.8; Range: 8.5-10.1; Units: MG/DL; Status: F Test Note: ; Units are mL/min/1.73 m2 Chronic Kidney Disease Staging per NKF: Stage I & II GFR >=60 Normal to Mildly Decreased Stage III GFR 30-59 Moderately Decreased Stage IV GFR 15-29 Severely Decreased Stage V GFR <15 Very Little GFR Left ESRD GFR <15 on TECHNICAL SERVICES ANALYST Lab Order: Fingerstick Blood Sugar; SPEC'M 12/11/16 08:43 Test: BEDSIDE GLUCOSE; Value: 92; Range: 70-105; Units: MG/DL; Status: F Lab Order: UA; SPEC' 12/11/16 11:48 Test: APPEARANCE, URINE; Value: HAZY; Range: CLEAR; Status: F Test: COLOR, URINE; Value: YELLOW; Range: YELLOW; Status: F Test: PH,URINE; Value: 9.0; Range: 5.0-9.0; Units: UNITS; Status: F Test: SPECIFIC GRAVITY URINE AUTO; Value: 1.014; Range: 1.002-1.035; Status: F Test: PROTEIN, URINE AUTO; Value: NEGATIVE; Range: NEGATIVE; Units: mg/dL; Status: F Test: GLUCOSE, URINE (UA) AUTO; Value: NEGATIVE; Range: NEGATIVE; Units: mg/dL; Status: F Test: KETONE, URINE AUTO; Value: NEGATIVE; Range: NEGATIVE; Units: mg/dL; Status: F Test: UROBILINOGEN, URINE AUTO; Value: 0.2; Range: 0.0-2.0; Units: mg/dL; Status: F Test: BILIRUBIN, URINE AUTO; Value: NEGATIVE; Range: NEGATIVE; Status: F Test: NITRITE, URINE AUTO; Value: NEGATIVE; Range: NEGATIVE; Status: F Test: LEUKOCYTE ESTERASE, URINE AUTO; Value: 3+; Range: NEGATIVE; Abnormal: Above high normal; Status: F Test: BLOOD, URINE BLOOD; Value: NEGATIVE; Range: NEGATIVE; Status: F Test: WBC, URINE AUTO; Value: 5; Range: 0-3; Abnormal: Above high normal; Units: /HPF; Status: F Test: RBC, URINE AUTO; Value: 16; Range: 0-3; Abnormal: Above high normal; Units: /HPF; Status: F Test: BACTERIA, URINE AUTO; Value: 1+; Range: NEGATIVE; Abnormal: Above high normal; Status: F Test: SQUAMOUS EPITHELIAL CELL UR AU; Value: 11; Range: 0-6; Units: /HPF; Status: F Test: MUCUS, URINE; Value: SMALL; Range: NEGATIVE; Status: F Test: HYALINE CAST, URINE AUTO; Value: 0; Range: 0-1; Units: /LPF; Status: F Test: AMORPHOUS SEDIMENT; Value: SMALL; Range: NEGATIVE; Abnormal: Above high normal; Status: F Lab Order: Fingerstick Blood Sugar; SPEC'M 12/11/16 10:31 Test: BEDSIDE GLUCOSE; Value: 84; Range: 70-105; Units: MG/DL; Status: F Outcome: 09:15 Decision to Hospitalize by Provider. ar2 12:56 Discharge Assessment: Patient awake, alert and oriented x 3. No cognitive and/or k functional deficits noted. Patient verbalized understanding of disposition instructions. patient administered narcotics - no. The following High Risk Discharge criteria are identified: None. Condition: good. No special radiology studies were completed. Admission hand-off: Report Faxed Fax receipt verified by bert pemberton. Property :Personal belongings accompany Pt. 13:00 Patient left the ED. [facility] Signatures: Param Rutledge,RN RN April Hernandez, RN RN Ayush Escobar, PA-C PA-C ar2 Sean Jay, RN RN Samuel Crabtree Kathie klr Montondo, Paul, Reg Reg pm4 Corrections: (The following items were deleted from the chart) 07:09 07:06 Presenting complaint: Patient states: states was walking and felt dizzy had numb ml6 feeling in right side of body, state Hx of same with negative MRI ml6 11:53 07:09 Home Meds: none; ml6 jancar Chart Complete MTDD
== END 2016-12-12 11:16 | disposition home or self-care (01) ==
LOC: M ED 07:02 → M ED INP 10:40 → M PCU 13:05
PROVIDERS: ADMIT Hospitalist; ATTEND Hospitalist
DX: R42 Dizziness and giddiness (principal); R20.2 Paresthesia of skin; Z33.1 Pregnant state, incidental

== ENCOUNTER → 2017-02-12 | Outpatient (REF) | payer BC ==
[~2017-02-12] MED LIST changes: +FLINCHW9 PO
== END ==
LOC: M LAB REF 16:54
PROVIDERS: ATTEND Advanced Practice Midwife
DX: Z34.82 Encounter for supervision of other normal pregnancy, second trimester (principal); Z36 Encounter for antenatal screening of mother

== ENCOUNTER → 2017-02-26 | Outpatient (CLI) | payer BC ==
--- NOTE | 2017-02-26 08:17 | REP ---
Clinical: Anatomical evaluation. Comparison: None . Findings: Examination demonstrates a single live intrauterine in variable presentation. motion is identified by technologist. Placenta is noted posteriorly and grade zero without evidence for placenta previa or abruption. Amniotic fluid volume is normal. Cervix measures 3.9 cm in length and appears closed. Nuchal cord cannot be excluded. Gestational age by LMP 19 weeks 1 day with JESUS 07/22/2017. Gestational age by current measurements 19 weeks 2 days with JESUS 07/21/2017. FHR equals 157 beats per minute. BPD 4.4 cm 19 weeks 3 days HC 16.3 cm 16 weeks 3 days AC 14.3 cm 19 weeks 5 days FL 3.0 cm 19 weeks 2 days HL 2.9 cm 19 weeks 3 days HC/AC ratio 1.14 Estimated weight 292 grams ( 59th percentile). Anatomical assessment demonstrates normal structures including cranium, choroid plexus, cavum, cerebellum/posterior fossa, facial features, lungs, four-chamber heart/ventricular outflow tracts, diaphragm, stomach, cord insertion/three-vessel cord, kidneys/bladder, spine, and extremities. Impression: Single live intrauterine in variable presentation. Nuchal cord cannot be excluded. Anatomical assessment is complete and normal. Signed by Duglas Rosario MD 02/26/2017 08:08 A
== END ==
LOC: M RAD 07:03
PROVIDERS: ATTEND Advanced Practice Midwife
DX: Z34.82 Encounter for supervision of other normal pregnancy, second trimester (principal); Z36 Encounter for antenatal screening of mother; Z3A.19 19 weeks gestation of pregnancy

== ENCOUNTER → 2017-05-10 | Outpatient (CLI) | payer BC, SELFPAY ==
[~2017-05-10] MED LIST changes: +HYDR1SOL PO; +[UNRECOGNIZED DRUG - CODE] PO
[2017-05-10 13:36] LABS: BASO % 0.4 % (0.0-1.0); EOS # 0.3 K/mm3 (0.0-0.50); EOS % 2.2 % (0.0-3.0); LARGE UNSTAINED CELL # 0.1 K/mm3 (0.0-0.4); LARGE UNSTAINED CELL % 0.9 % (0.0-4.0); LYMPH # 1.8 K/mm3 (1.5-6.5); LYMPH % 14.5 % (24.0-44.0); MEAN CORPUSCULAR HEMOGLOBIN 28.7 pg (27.0-33.0); MEAN CORPUSCULAR HGB CONC 33.3 g/dl (32.0-36.5); MEAN CORPUSCULAR VOLUME 86.3 fl (80.0-96.0); MONO # 0.5 K/mm3 (0.0-0.8); MONO % 3.8 % (0.0-5.0); NEUTROPHILS # 9.8 K/mm3 (1.8-7.7); NEUTROPHILS % 78.2 % (36.0-66.0); PLATELET COUNT, AUTOMATED 291 k/mm3 (150-450); RED CELL DISTRIBUTION WIDTH 13.2 % (11.5-14.5); WHITE BLOOD COUNT 12.5 K/mm3 (4.0-10.0)
== END ==
LOC: M LAB 11:28
PROVIDERS: ATTEND Advanced Practice Midwife
DX: Z34.83 Encounter for supervision of other normal pregnancy, third trimester (principal); Z36 Encounter for antenatal screening of mother

== ENCOUNTER → 2017-06-19 | Outpatient (CLI) | payer BC ==
[2017-06-19 15:22] LABS: MEAN CORPUSCULAR HEMOGLOBIN 27.2 pg (27.0-33.0); MEAN CORPUSCULAR HGB CONC 33.2 g/dl (32.0-36.5); RED CELL DISTRIBUTION WIDTH 14.7 % (11.5-14.5); WHITE BLOOD COUNT 10.2 K/mm3 (4.0-10.0)
== END ==
LOC: M LAB 14:47
PROVIDERS: ATTEND Obstetrics & Gynecology
DX: Z34.83 Encounter for supervision of other normal pregnancy, third trimester (principal)

== ENCOUNTER → 2017-06-21 | Outpatient (REF) | payer BC | LOC: M LAB REF 17:25 | PROVIDERS: ATTEND Specialist | DX: Z34.83 Encounter for supervision of other normal pregnancy, third trimester (principal); Z36 Encounter for antenatal screening of mother ==

== ENCOUNTER 2017-07-11 08:36 | Outpatient (CLI) | payer BC ==
[~2017-07-11] VITALS: Ht 160 cm; Wt 73.0 kg
[~2017-07-11 08:36] MED LIST changes: -HYDR1SOL PO; -[UNRECOGNIZED DRUG - CODE] PO
[2017-07-11] MEDS ORDERED: IRON SUCROSE 25 MG in NS 50 ML IV ONE (09:00)
[2017-07-11] MEDS ORDERED: IRON SUCROSE 475 MG in NS 250 ML IV ONE (10:00)
== END 2017-07-11 14:40 | disposition home or self-care (01) ==
LOC: M INFU 08:36
PROVIDERS: ATTEND Advanced Practice Midwife
DX: D64.9 Anemia, unspecified (principal)
CPT/HCPCS: 96365; 96366; J1756

== ENCOUNTER 2017-07-16 04:53 | Inpatient (IN) | payer BC ==
[~2017-07-16] VITALS: Ht 157.5 cm; Wt 71.0 kg
[2017-07-16 05:43] LABS: MEAN CORPUSCULAR HEMOGLOBIN 26.1 pg (27.0-33.0); MEAN CORPUSCULAR HGB CONC 31.8 g/dl (32.0-36.5); MEAN CORPUSCULAR VOLUME 82.1 fl (80.0-96.0); RED CELL DISTRIBUTION WIDTH 18.8 % (11.5-14.5)
[2017-07-16 05:58] VITALS: BP 118/58
[2017-07-16] MEDS ORDERED: BICITRA 30ML SOLN UDC As Ordered ONE (06:47)
[2017-07-16] MEDS ORDERED: ceFAZolin 2 GM/D5W 50 ML IV BAG (J0690) As Ordered ONE (06:47)
[2017-07-16] MEDS ORDERED: MORPHINE PRES-FREE INJ 10 MG/10 ML VIAL (J2274) As Ordered ONE (07:29)
[2017-07-16] MEDS ORDERED: BICITRA 30ML SOLN UDC PO ONE (07:30)
[2017-07-16] MEDS ORDERED: LACTATED RINGER'S 1000 ML IV ONE (07:30)
[2017-07-16] MEDS ORDERED: ONDANSETRON 4MG/2ML VIAL (J2405) IV PRN ×3 (07:39→09:15)
[2017-07-16] MEDS ORDERED: METOCLOPRAMIDE INJ 10MG/2ML VIAL (J2765) IV PRN ×2 (07:39→09:15)
[2017-07-16] MEDS ORDERED: NALBUPHINE HCL 10 MG/ML AMP (J2300) IV PRN (07:39)
[2017-07-16] MEDS ORDERED: NALOXONE INJ 0.4 MG/1 ML VIAL (J2310) IV PRN ×2 (07:39)
[2017-07-16] MEDS ORDERED: LR 1,000 ML IV SCH ×2 (08:00→09:15)
[2017-07-16] MEDS ORDERED: ONDANSETRON 4MG/2ML VIAL (J2405) As Ordered ONE (08:06)
[2017-07-16] MEDS ORDERED: OXYTOCIN INJ 10 UNITS/ML VIAL (J2590) As Ordered ONE (08:06)
[2017-07-16] MEDS ORDERED: KETOROLAC 60 MG/2 ML VIAL (J1885) As Ordered ONE (08:06)
[2017-07-16] MEDS ORDERED: PHENYLephrine HCL 500 MCG/5 ML (100MCG/ML) SYRINGE (J2370) As Ordered ONE (08:07)
[2017-07-16] MEDS ORDERED: ePHEDrine SULFATE 25 MG/5 ML(5MG/ML) SYRINGE As Ordered ONE (08:07)
[2017-07-16] MEDS ORDERED: MEASLES,MUMPS,RUBELLA VACCINE INJ (MMR-II) (90707) SC SCH (08:45)
[2017-07-16] MEDS ORDERED: OXYTOCIN DRIP 30 UNITS in APPROPRIATE DILUENT 1 EA IV ONE (08:45)
[2017-07-16] MEDS ORDERED: RHOGAM 300 MCG (1500 IU) INJ (J2790) IM SCH (08:45)
[2017-07-16] MEDS ORDERED: DOCUSATE SODIUM 100 MG CAP PO PRN (08:45)
[2017-07-16] MEDS ORDERED: IBUPROFEN 100 MG/5 ML SUSP UDC DYE FREE PO PRN (09:00)
--- NOTE | 2017-07-16 09:07 | RO ---
DATE OF PROCEDURE: 07/16/2017 PREPROCEDURE DIAGNOSIS: 39 weeks, prior section times one. POSTPROCEDURE DIAGNOSIS: 39 weeks, prior section times one. PROCEDURE: Repeat low transverse section. SURGEON: Dr. Obed Shetty HANDYMAN: Dr. Gerardo Curry ANESTHESIA: Spinal. ESTIMATED BLOOD LOSS: 500 mL. URINE OUTPUT: 125 mL. IV FLUIDS: 1500 mL. FINDINGS: 8 pound and 5 ounce or 3776 gram female infant, Apgars 9 and 9. Normal uterus, fallopian tubes and ovaries. OPERATIVE SUMMARY: The patient taken to the operating room where spinal anesthesia was induced. She was prepped and draped in sterile fashion in the supine position. A Mcdermott catheter was placed. A Pfannenstiel skin incision was made with the scalpel and carried through to the fascia. The fascia was nicked and extended. The fascia was dissected off the rectus muscles. The peritoneal cavity was entered. A bladder flap was created. A curvilinear incision was made in the lower uterine segment until clear fluid was noted. This was extended manually. The was delivered from the vertex position with a single use of the vacuum extractor. The infant was delivered with ease. The cord was doubly clamped and cut. The was handed off to the awaiting nurses. The placenta was expressed. The uterus was exteriorized and cleared of clots and debris. The uterine incision was closed with #0 Vicryl in a running locked fashion. A second imbricating layer of #0 Vicryl was placed. The uterus was placed back in the abdominal cavity. The peritoneum was closed with #2-0 Vicryl. The fascia was closed with #0 Vicryl in a running fashion. The deep layer was irrigated and closed with #3-0 chromic. The skin was closed with #4-0 Monocryl subcuticular sutures Sponge, instrument and needle counts were correct.
[2017-07-16] MEDS ORDERED: fentaNYL 100 MCG/2 ML INJECTION (J3010) IV PRN (09:15)
[2017-07-16] MEDS ORDERED: PERCOCET 5MG/325MG TAB PO PRN (09:15)
[2017-07-16] MEDS ORDERED: MEPERIDINE INJ 25 MG/ML VIAL (J2175) IV PRN (09:15)
[2017-07-16 10:30] VITALS: BP 123/74
[2017-07-16 11:00] VITALS: BP 119/65
[2017-07-16 12:00] VITALS: BP 117/69
[2017-07-16 13:00] VITALS: BP 122/69
[2017-07-16] MEDS: KETOROLAC 30 MG/ML VIAL (J1885) IV SCH ×2 (14:02→20:44)
[2017-07-16] MEDS: LR 1,000 ML IV SCH ×2 (19:16→20:48)
[2017-07-16] MEDS: PRENATAL VITAMINS CHEWABLE TABLET PO SCH (20:47)
[2017-07-16 22:00] VITALS: BP 116/65
[2017-07-17] MEDS: LR 1,000 ML IV SCH (00:09)
[2017-07-17 02:00] VITALS: BP 108/57
[2017-07-17] MEDS: KETOROLAC 30 MG/ML VIAL (J1885) IV SCH ×2 (02:09→07:44)
[2017-07-17 06:04] VITALS: BP 114/66
[2017-07-17] MEDS: HYDROcodone/APAP LIQUID 7.5-325MG 15ML UDC (LORTAB ELIXIR) PO PRN ×3 (06:17→19:28)
[2017-07-17 07:09] LABS: MEAN CORPUSCULAR HEMOGLOBIN 26.6 pg (27.0-33.0); MEAN CORPUSCULAR HGB CONC 32.3 g/dl (32.0-36.5); MEAN CORPUSCULAR VOLUME 82.3 fl (80.0-96.0); RED CELL DISTRIBUTION WIDTH 20.5 % (11.5-14.5); WHITE BLOOD COUNT 11.1 K/mm3 (4.0-10.0)
[2017-07-17] MEDS ORDERED: [UNRECOGNIZED DRUG - CODE] PO (07:39)
[2017-07-17] MEDS: PRENATAL VITAMINS CHEWABLE TABLET PO SCH (07:45)
[2017-07-17 10:00] VITALS: BP 113/57
[2017-07-17 14:00] VITALS: BP 135/62
[2017-07-17 18:00] VITALS: BP 122/75
[2017-07-17 22:26] VITALS: BP 135/69
[2017-07-18] MEDS: HYDROcodone/APAP LIQUID 7.5-325MG 15ML UDC (LORTAB ELIXIR) PO PRN ×3 (00:10→10:05)
[2017-07-18 05:48] VITALS: BP 179/89
[2017-07-18 06:15] VITALS: BP 141/82
--- NOTE | 2017-07-18 08:34 | DSES ---
DATE OF ADMISSION: 07/16/2017 DATE OF DISCHARGE: 07/18/2017 DISCHARGE DIAGNOSIS: Repeat low transverse section, stable condition., postoperative day #2, surgeon Dr. Obed Shetty, pharmacy affairs assistant Dr. Gerardo Curry. HISTORY: Yuliana is a 27-year-old, 2, para 2-0-0-2 now, who underwent a repeat section at 39 weeks gestation. Her surgery was uncomplicated. She delivered a live female, 8 pounds 5 ounces (3776 grams), 9 and 9. Estimated blood loss was 500 mL. Her postoperative course has been uncomplicated. She has been out of bed for self care, olivier care, infant care. Her pain has been controlled with liquid Percocet. She denies headache, blurred vision, heart palpitations and dizziness. She does report that she had some pain early this morning and had not taken any pain medication, and since then has received her pain medication and is much more comfortable. She is afebrile. She is voiding without difficulty, tolerating a regular diet and passing flatus. OBJECTIVE: Vital signs: Temperature 98.8. Blood pressure 141/82. Pulse 88. Respirations 17. She is alert and oriented times three. She appears comfortable. She is talking and smiling. Breasts are soft and nontender. Abdomen: Fundus firm at U. Incision is well approximated. There is no drainage. No warmth. No redness. No edema. Perineum is intact. Lochia rubra scant. Bilateral lower extremities with scant edema. Her labs on date of admission, 07/16/2017, a CBC with hemoglobin of 8.9, hematocrit 27.9, platelets 250. Postop CBC on 07/17/2017 with hemoglobin of 8, hematocrit 24.7 and platelets of 197. PLAN: Discharge the patient home today. Prescription has been E-prescribed by Dr. Obed Shetty to her pharmacy for liquid Percocet. She is to take ibuprofen as well. I did review discharge instructions that include breast care, incision care, olivire care, pelvic rest, activity and lifting restrictions, signs of breast infection, phlebitis, access to care and other important danger signs to report to her provider. She is to up at [facility] for a 2 week incision check and again for an 8 week appointment.
[2017-07-18] MEDS: PRENATAL VITAMINS CHEWABLE TABLET PO SCH (09:00)
[2017-07-18] MEDS ORDERED: HYDR1SOL PO ×2 (09:16→10:22)
== END 2017-07-18 11:27 | disposition home or self-care (01) | DRG 540 ==
LOC: M LDI 04:53 → M OBS 10:30
PROVIDERS: ADMIT Specialist; ATTEND Specialist
PROC: 10D00Z1 Extraction of Products of Conception, Low, Open Approach (ICD-10-PCS; principal; 2017-07-16 07:30)
DX: O34.211 Maternal care for low transverse scar from previous cesarean delivery (principal); Z37.0 Single live birth; Z3A.39 39 weeks gestation of pregnancy

== ENCOUNTER → 2019-10-08 | Outpatient (REF) | payer BC, OTHER ==
[~2019-10-08] MED LIST changes: +HYDR1SOL PO; +OXYC1TAB23 PO; +[UNRECOGNIZED DRUG - CODE] PO
== END ==
LOC: M LAB REF 15:14
PROVIDERS: ATTEND Physician Assistant
DX: N91.2 Amenorrhea, unspecified (principal)

== ENCOUNTER → 2020-01-15 | Outpatient (REF) | payer OTHER, MEDICAID ==
[2020-01-15 13:07] LABS: HEMATOCRIT 37.8 % (36.0-47.0); HEMOGLOBIN 12.7 g/dl (12.0-15.5); MEAN CORPUSCULAR HEMOGLOBIN 30.1 pg (27.0-33.0); MEAN CORPUSCULAR HGB CONC 33.6 g/dl (32.0-36.5); MEAN CORPUSCULAR VOLUME 89.6 fl (80.0-96.0); PLATELET COUNT, AUTOMATED 320 10^3/uL (150-450); RED BLOOD COUNT 4.22 10^6/uL (4.00-5.40); WHITE BLOOD COUNT 13.5 10^3/uL (4.0-10.0)
[2020-01-16 09:08] LABS: HEPATITIS B SURFACE ANTIGEN NEGATIVE (NEGATIVE); HEPATITIS C VIRUS ABY INDEX 0.1 INDEX (<0.8); HIV 1&2 SCREEN CENTAUR NEGATIVE (NEGATIVE); RUBELLA IgG QUALITATIVE EQUIVOCAL (IMMUNE)
== END ==
LOC: M PLALAB 08:58
PROVIDERS: ATTEND Specialist
DX: Z34.81 Encounter for supervision of other normal pregnancy, first trimester (principal)

== ENCOUNTER → 2020-02-12 | Outpatient (CLI) | payer OTHER ==
--- NOTE | 2020-02-12 19:26 | REP ---
Obstetric sonography: History: Supervision of for anatomy. Findings: Scanning through the gravid uterus demonstrates a single intrauterine gestation in a breech lie. motion is observed and heart rate is recorded at 139 beats per minute. A posterior grade 1 placenta is seen without evidence of previa or abruption. Amniotic fluid is subjectively normal. Closed cervical length is measured transabdominally at 3.8 cm. No extrauterine abnormalities observed. Exam quality is inhibited by position. No abnormality is seen. Four-chamber heart view is less than optimally seen due to position. The following additional anatomic structures are identified and felt to be unremarkable: cranium, choroid plexus, cavum, cerebellum and posterior fossa, nuchal fold, face and profile, left and right ventricular cardiac outflow tract views, diaphragm, left-sided stomach, abdominal wall cord insertion, three-vessel cord, kidneys and bladder, spine, upper lower extremities. Biometry chart: BPD 5.4 cm = 22 weeks 2 days HC 19.5 cm = 21 weeks 5 days AC 17.4 cm = 22 weeks 2 days FL 3.8 cm = 22 weeks 1 day HL 3.6 cm = 22 weeks 2 days HC/AC ratio normal 1.12. Cephalic index normal 0.77. Estimated weight 483 grams, 1 pound 1 ounce, 38th percentile for 22 weeks 3 days. Impression: Viable single intrauterine gestation at 21 weeks 6 days by today's composite sonographic criteria. JESUS by today's sonography June 18, 2020. anatomic survey is complete with the exception of four-chamber heart visualization.
== END ==
LOC: M WHC 14:56
PROVIDERS: ATTEND Specialist
DX: O34.211 Maternal care for low transverse scar from previous cesarean delivery (principal); Z3A.18 18 weeks gestation of pregnancy

== ENCOUNTER → 2020-02-20 | Outpatient (REF) | payer OTHER, MEDICAID | LOC: M PLALAB 11:21 | PROVIDERS: ATTEND Obstetrics & Gynecology | DX: O34.211 Maternal care for low transverse scar from previous cesarean delivery (principal) ==

== ENCOUNTER → 2020-02-27 | Outpatient (CLI) | payer OTHER ==
--- NOTE | 2020-02-28 08:30 | REP ---
OB ULTRASOUND: Real-time sonographic evaluation of the gravid uterus is performed. There is a single living intrauterine gestation, estimated gestational age is 24 weeks 4 days, EDC 06/14/2020. Today's measurements indicate appropriate growth. Biometry and Growth: BPD 60 mm = 24 weeks 4 days, 48th percentile HC 221 mm = 24 weeks 1 day, 40th percentile AC 201 mm = 24 weeks 5 days, 52nd percentile FL 45 mm = 24 weeks 5 days, 52nd percentile HC/AC ratio 1.10 within normal range 1.02 to 1.21. Estimated [id number] grams 45th percentile. Visualized anatomy today includes upper lip, four chamber heart, ventricular outflow tracts, stomach, cord insertion, three-vessel cord, kidneys and bladder, which are all grossly unremarkable. Cervical length: Closed and measures 3.2 cm in length. heart rate: 136 beats per minute. position: Breech. Placenta: Posterior and on the right, grade 1 with no previa or abruption. Amniotic fluid: Within normal limits.
== END ==
LOC: M WHC 13:09
PROVIDERS: ATTEND Obstetrics & Gynecology
DX: O34.211 Maternal care for low transverse scar from previous cesarean delivery (principal); Z3A.24 24 weeks gestation of pregnancy

== ENCOUNTER → 2020-03-22 | Outpatient (REF) | payer OTHER, MEDICAID ==
[2020-03-22 15:21] LABS: HEMATOCRIT 32.3 % (36.0-47.0); HEMOGLOBIN 10.6 g/dl (12.0-15.5); MEAN CORPUSCULAR HEMOGLOBIN 30.1 pg (27.0-33.0); MEAN CORPUSCULAR HGB CONC 32.8 g/dl (32.0-36.5); MEAN CORPUSCULAR VOLUME 91.8 fl (80.0-96.0); PLATELET COUNT, AUTOMATED 288 10^3/uL (150-450); RED BLOOD COUNT 3.52 10^6/uL (4.00-5.40); WHITE BLOOD COUNT 11.9 10^3/uL (4.0-10.0)
== END ==
LOC: M PLALAB 11:14
PROVIDERS: ATTEND Obstetrics & Gynecology
DX: O34.211 Maternal care for low transverse scar from previous cesarean delivery (principal)
CPT/HCPCS: 82950; 85027; 86850; 86900; 86901; J2790

== ENCOUNTER → 2020-05-24 | Outpatient (CLI) | payer OTHER, MEDICAID | LOC: M PLALAB 13:26 | PROVIDERS: ATTEND Advanced Practice Midwife | DX: O34.211 Maternal care for low transverse scar from previous cesarean delivery (principal); Z3A.00 Weeks of gestation of pregnancy not specified ==

== ENCOUNTER 2020-06-08 06:00 | Inpatient (IN) | payer MEDICAID, OTHER ==
[2020-06-08] MEDS ORDERED: BICITRA 30ML SOLN UDC As Ordered ONE (06:50)
[2020-06-08] MEDS ORDERED: ceFAZolin 2 GM/D5W 50 ML IV BAG (J0690 PER 500MG) As Ordered ONE (06:50)
[2020-06-08] MEDS ORDERED: OXYTOCIN 30 UNITS IN 0.9% NaCl 500ML IV BAG (J2590) As Ordered ONE ×2 (07:26→08:46)
[2020-06-08] MEDS ORDERED: ePHEDrine SULFATE 25 MG/5 ML(5MG/ML) SYRINGE As Ordered ONE (07:26)
[2020-06-08] MEDS ORDERED: MORPHINE PRES-FREE INJ 10 MG/10 ML VIAL (J2274) As Ordered ONE (07:26)
[2020-06-08] MEDS ORDERED: PHENYLephrine HCL 500 MCG/5 ML (100MCG/ML) SYRINGE (J2370) As Ordered ONE (07:26)
[2020-06-08] MEDS ORDERED: ONDANSETRON 4MG/2ML VIAL As Ordered ONE (07:56)
[2020-06-08] MEDS ORDERED: KETOROLAC 60MG 2ML VIAL As Ordered ONE (07:56)
[2020-06-08] MEDS ORDERED: diphenhydrAMINE 50MG/ML VIAL (J1200) As Ordered ONE ×2 (09:20→13:35)
[2020-06-08] MEDS ORDERED: KETOROLAC 30 MG/ML 1ML VIAL As Ordered ONE ×2 (14:31→20:33)
[2020-06-08] MEDS ORDERED: KETOROLAC 30 MG/ML 1ML VIAL ONE ×2 (14:31→20:33)
[2020-06-08] MEDS ORDERED: ACETAMINOPHEN SUSP DYE FREE 160 MG/5 ML UDC As Ordered ONE (19:44)
[2020-06-09] MEDS ORDERED: KETOROLAC 30 MG/ML 1ML VIAL As Ordered ONE ×2 (06:17→12:06)
[2020-06-09] MEDS ORDERED: KETOROLAC 30 MG/ML 1ML VIAL ONE ×2 (06:17→12:06)
[2020-06-09] MEDS ORDERED: PERCOCET 5MG/325MG TAB ONE ×2 (09:58→18:58)
[2020-06-09] MEDS ORDERED: PERCOCET 5MG/325MG TAB As Ordered ONE ×2 (09:58→18:58)
[2020-06-09] MEDS ORDERED: IBUPROFEN 800 MG TAB ONE (17:57)
[2020-06-09] MEDS ORDERED: IBUPROFEN 800 MG TAB As Ordered ONE (17:57)
[2020-06-10] MEDS ORDERED: PERCOCET 5MG/325MG TAB As Ordered ONE ×3 (00:08→10:08)
[2020-06-10] MEDS ORDERED: PERCOCET 5MG/325MG TAB ONE ×2 (00:08→05:45)
[2020-06-10] MEDS ORDERED: MEASLES,MUMPS,RUBELLA VACCINE INJ (MMR-II) (90707) ONE (11:41)
[2020-06-10] MEDS ORDERED: MEASLES,MUMPS,RUBELLA VACCINE INJ (MMR-II) (90707) As Ordered ONE (11:41)
[2020-08-07 09:10] LABS: HEMOGLOBIN 7.5 g/dl (12.0-15.5); MEAN CORPUSCULAR HEMOGLOBIN 27.4 pg (27.0-33.0); MEAN CORPUSCULAR HGB CONC 31.3 g/dl (32.0-36.5); MEAN CORPUSCULAR VOLUME 87.6 fl (80.0-96.0); PLATELET COUNT, AUTOMATED 206 10^3/uL (150-450); RED BLOOD COUNT 2.74 10^6/uL (4.00-5.40); WHITE BLOOD COUNT 13.1 10^3/uL (4.0-10.0)
--- NOTE | 2020-08-12 13:29 | RO ---
DATE OF OPERATION: 06/08/2020 PREOPERATIVE DIAGNOSIS: 39 weeks with prior section x2. POSTOPERATIVE DIAGNOSIS: 39 weeks with prior section x2. PROCEDURE: Repeat low-transverse section. SURGEON: Obed Shetty MD PAINT COATING MACHINE OPERATOR: Erum Glass MD ANESTHESIA: Spinal. ESTIMATED BLOOD LOSS: 500 mL. URINE OUTPUT: 50 mL. IV FLUIDS: 1300 mL. FINDINGS: 7 pound 15 ounce female . Apgars 8 and 9. Normal uterus, fallopian tubes, and ovaries. DESCRIPTION OF PROCEDURE: The patient was taken to the operating room where spinal anesthesia was induced. She was prepped and draped in a sterile fashion in the supine position. A Mcdermott catheter was placed. A Pfannenstiel skin incision was made with a scalpel and carried through to the fascia. The fascia was nicked and extended. The fascia was resected off the rectus muscle and the cavity was entered. Bladder flap was created. Curvilinear incision made in the lower uterine segment until bulging membranes were noted. This was extended manually. Membranes ruptured with clear fluid. The was delivered from the vertex position without difficulty. The cord was doubly clamped and cut. The infant was handed off to waiting nurses. The placenta was expressed. The uterus was closed with 0-Vicryl in a running lock fashion. A second imbricating layer of 0-Vicryl was placed. The peritoneum was closed with 2-0 Vicryl in a running fashion. The fascia was closed with 0-Vicryl in a running fashion. The deep layer was irrigated. Skin was closed with 4-0 Monocryl subcuticular sutures. Sponge, instrument, and needle counts were correct. Erum Glass MD assisted throughout the procedure. He was indispensable for successful completion of the procedure. He helped create each layer of the incision. He helped deliver the fetus and close all layers. [facility]
[2020-08-15 14:09] LABS: HEMOGLOBIN 9.5 g/dl (12.0-15.5); MEAN CORPUSCULAR HEMOGLOBIN 26.3 pg (27.0-33.0); MEAN CORPUSCULAR HGB CONC 31.7 g/dl (32.0-36.5); MEAN CORPUSCULAR VOLUME 83.1 fl (80.0-96.0); PLATELET COUNT, AUTOMATED 307 10^3/uL (150-450); RED BLOOD COUNT 3.61 10^6/uL (4.00-5.40); WHITE BLOOD COUNT 11.1 10^3/uL (4.0-10.0)
== END 2020-06-10 11:56 | disposition home or self-care (01) | DRG 540 ==
LOC: M OBS 06:00 → UNDODISIN 06-10 11:56
PROVIDERS: ADMIT Specialist; ATTEND Specialist
PROC: 10D00Z1 Extraction of Products of Conception, Low, Open Approach (ICD-10-PCS; principal; 2020-06-08)
DX: O34.211 Maternal care for low transverse scar from previous cesarean delivery (principal); Z37.0 Single live birth; Z3A.39 39 weeks gestation of pregnancy

== ENCOUNTER 2020-06-13 02:13 | Emergency (ER) | payer OTHER, MEDICAID ==
[2020-06-13] MEDS ORDERED: METOCLOPRAMIDE INJ 10MG/2ML VIAL (J2765 PER 1) ONE (04:09)
[2020-06-13] MEDS ORDERED: METOCLOPRAMIDE INJ 10MG/2ML VIAL (J2765 PER 1) As Ordered ONE (04:09)
[2020-06-13] MEDS ORDERED: metroNIDAZOLE/NACL 500MG(5MG/ML) 100ML BAG (S0030) As Ordered ONE (05:00)
[2020-06-13] MEDS ORDERED: metroNIDAZOLE (FLAGYL) 500MG TABLET ONE (05:02)
[2020-06-13] MEDS ORDERED: metroNIDAZOLE (FLAGYL) 500MG TABLET As Ordered ONE (05:02)
[2020-07-29 10:02] LABS: APPEARANCE, URINE CLEAR (CLEAR); BACTERIA, URINE AUTO NEGATIVE (NEGATIVE); BILIRUBIN, URINE AUTO NEGATIVE (NEGATIVE); BLOOD, URINE BLOOD 1+ (NEGATIVE); COLOR, URINE STRAW (YELLOW); GLUCOSE, URINE (UA) AUTO NEGATIVE (NEGATIVE); KETONE, URINE AUTO NEGATIVE (NEGATIVE); LEUKOCYTE ESTERASE, URINE AUTO TRACE (NEGATIVE); NITRITE, URINE AUTO NEGATIVE (NEGATIVE); PROTEIN, URINE AUTO NEGATIVE (NEGATIVE); RBC, URINE AUTO 2 /HPF (0-3); SPECIFIC GRAVITY URINE AUTO 1.009 (1.002-1.035); SQUAMOUS EPITHELIAL CELL UR AU 1 /HPF (0-6); UROBILINOGEN, URINE AUTO 0.2 mg/dL (0.0-2.0); WBC, URINE AUTO 2 /HPF (0-3)
[2020-07-29 18:37] LABS: BASO % 0.3 % (0.0-1.0); EOS # 0.1 10^3/uL (0.0-0.5); EOS % 0.7 % (0.0-3.0); HEMOGLOBIN 8.4 g/dl (12.0-15.5); LYMPH # 1.5 10^3/uL (1.5-5.0); LYMPH % 13.6 % (24.0-44.0); MEAN CORPUSCULAR HEMOGLOBIN 25.9 pg (27.0-33.0); MEAN CORPUSCULAR HGB CONC 31.1 g/dl (32.0-36.5); MEAN CORPUSCULAR VOLUME 83.3 fl (80.0-96.0); MONO # 0.6 10^3/uL (0.0-0.8); MONO % 5.1 % (0.0-5.0); NEUTROPHILS # 8.5 10^3/uL (1.5-8.5); NEUTROPHILS % 79.4 % (36.0-66.0); PLATELET COUNT, AUTOMATED 365 10^3/uL (150-450); RED BLOOD COUNT 3.24 10^6/uL (4.00-5.40); WHITE BLOOD COUNT 10.7 10^3/uL (4.0-10.0)
[2020-08-29 03:27] LABS: ALBUMIN 2.3 GM/DL (3.2-5.2); ALT/SGPT 12 U/L (12-78); BILIRUBIN,DIRECT 0.1 MG/DL (0.0-0.2); BILIRUBIN,TOTAL 0.3 MG/DL (0.2-1.0); BLOOD UREA NITROGEN 6 MG/DL (7-18); CALCIUM LEVEL 8.1 MG/DL (8.5-10.1); CARBON DIOXIDE LEVEL 24 MEQ/L (21-32); CHLORIDE LEVEL 111 MEQ/L (98-107); CREATININE FOR GFR 0.67 MG/DL (0.55-1.30); GLOMERULAR FILTRATION RATE > 60.0 (>60); GLUCOSE, FASTING 92 MG/DL (70-100); LIPASE 50 U/L (73-393); POTASSIUM SERUM 4.3 MEQ/L (3.5-5.1); SODIUM LEVEL 143 MEQ/L (136-145); TOTAL PROTEIN 5.9 GM/DL (6.4-8.2)
[2020-08-29 03:28] LABS: HCG, SERUM QUALITATIVE POSITIVE (NEGATIVE)
== END 2020-06-13 06:15 | disposition home or self-care (01) ==
LOC: M ED 02:13
DX: A59.9 Trichomoniasis, unspecified (principal)
CPT/HCPCS: 36415; 80048; 80076; 81001; 83690; 84703; 85025; 87086; 99283; J2765

== ENCOUNTER → 2021-06-27 | Outpatient (REF) | payer OTHER, MEDICAID | LOC: M SFHCWAGY 18:50 | PROVIDERS: ATTEND Specialist | DX: Z12.4 Encounter for screening for malignant neoplasm of cervix (principal); A59.01 Trichomonal vulvovaginitis ==

== ENCOUNTER → 2025-07-28 | Outpatient (CLI) | payer OTHER | LOC: M LAB 16:04 | PROVIDERS: ATTEND Physician Assistant Medical | DX: Z00.00 Encounter for general adult medical examination without abnormal findings (principal) ==

== ENCOUNTER → 2025-08-05 | Outpatient (CLI) | payer OTHER | LOC: M LAB 08-04 16:58 | PROVIDERS: ATTEND Physician Assistant Medical | DX: Z11.1 Encounter for screening for respiratory tuberculosis (principal) ==